=== PATIENT | female | born 1955 | race Caucasian/White ===

== ENCOUNTER 2017-12-14 21:24 | Emergency (ER) | payer BC ==
[~2017-12-14] VITALS: Ht 162.6 cm; Wt 67.1 kg
[~2017-12-14 21:24] MED LIST: MOBIC15 MG PO; ULTRACET1 TABLET PO
[2017-12-15 00:06] VITALS: BP 118/70
[2017-12-16] MEDS ORDERED: DELTASONE20 M1 PO (15:09)
[2017-12-16] MEDS ORDERED: VALIUM2 MG PO (15:09)
== END 2017-12-15 00:06 | disposition home or self-care (01) ==
LOC: EME 21:24
DX: R51 Headache (principal); J32.9 Chronic sinusitis, unspecified; Z88.5 Allergy status to narcotic agent
CPT/HCPCS: 99281; 99284; J1200; J1885; J2765; J7030

== ENCOUNTER 2017-12-16 11:57 | Emergency (ER) | payer BC ==
[~2017-12-16] VITALS: Ht 162.6 cm; Wt 66.1 kg
[2017-12-16] MEDS ORDERED: VALIUM2 MG PO (15:09)
[2017-12-16] MEDS ORDERED: DELTASONE20 M1 PO (15:09)
[2017-12-16 15:31] VITALS: BP 141/73
== END 2017-12-16 15:32 | disposition home or self-care (01) ==
LOC: EME 11:57
DX: M62.838 Other muscle spasm (principal); R51 Headache; Z98.1 Arthrodesis status; Z88.5 Allergy status to narcotic agent
CPT/HCPCS: 70450; 72125; 99281; 99284; J1885